=== PATIENT | female | born 2000 | race Caucasian/White ===

== ENCOUNTER 2019-03-04 06:57 | Inpatient (IN) | payer OTHER ==
[2019-03-04] MEDS ORDERED: Buffered Lidocaine 1% SYRIN* 1 ML/SYRINGE INTRADERM ONE (07:29)
[2019-03-04] MEDS ORDERED: Lactated Ringers 1000 ML Bag* 1,000 ML IV ONE ×2 (07:29→08:22)
[2019-03-04 07:52] LABS: Hematocrit 34 % (35-47); Hemoglobin 11.6 g/dL (12.0-16.0); Mean Corpuscular HGB Conc 34 g/dL (31-36); Mean Corpuscular Hemoglobin 27 pg (27-31); Mean Corpuscular Volume 81 fL (80-97); Mean Platelet Volume 7.9 fL (7.4-10.4); Platelet Count 259 10^3/uL (150-450); Red Blood Count 4.24 10^6 /uL (3.70-4.87); Red Cell Distribution Width 20 % (10-15); White Blood Count 10.8 10^3/uL (3.5-10.8)
[2019-03-04] MEDS ORDERED: OBEPIDURAL* 250 ML EPIDURAL ONE (07:55)
[2019-03-04] MEDS ORDERED: Bupivacaine 0.25% SDV PF* 10 ML VIAL INJ ONE (07:57)
[2019-03-04] MEDS ORDERED: Lactated Ringers 1000 ML Bag* 1,000 ML IV SCH ×3 (08:00→16:00)
[2019-03-04] MEDS ORDERED: Famotidine TAB* 20 MG PO PRN (08:22)
[2019-03-04] MEDS ORDERED: Phenylephrine 40 MCG/ML SYRINGE IV PUSH PRN ×2 (08:22)
[2019-03-04] MEDS ORDERED: Sodium Citrate/Citric Acid* 15 ML UDC PO PRN (08:22)
[2019-03-04] MEDS ORDERED: OBEPIDURAL* 250 ML EPIDURAL SCH (09:00)
--- NOTE | 2019-03-04 09:08 | HP ---
General Information - Reason for Visit Pt arrived on unit in active labor - General Information Maternal Age: 18 Grav: 1 Para: 0 SAB: 0 IEA: 0 Estimated Due Date: 03/09/19 Determined By: LMP Maternal Blood Type and Rh: A Positive - Results this Serology/RPR Result: Non-Reactive Rubella Result: Immune HBsAg Result: Negative HIV Result: Negative GBS Culture Result: Negative Past Medical History Delivery History: See Records - primigravida Pertinent Past Medical History: See Records - depression/ anxiety Pertinent Past Surgical History: None Pertinent Family History: Non-Contributory - Antepartal Records Antepartal Records: Reviewed, Complicated by: - teen , depression/ anxiety, anemia Review of Systems Constitutional: Uncomfortable CV Complaint: No Respiratory: Shortness of Breath: No Gastrointestinal: No Nausea/Vomiting, Normal Bowel Movement Genitourinary: No Dysuria, No Bleeding, No Leaking Fluid Musculoskeletal: No Epigastric Pain, Back Pain, Contractions Neurological: No Headache, No Visual Changes Movement: Normal Exam Allergies/Adverse Reactions: Allergies No Known Allergies Allergy (Verified 03/04/19 07:51) T-97.7, P-96, R-16, BP-109/68, O2-100% Lab Values - Entire Visit: Laboratory Tests 03/04/19 03/04/19 07:36 07:36 WBC 10.8 RBC 4.24 Hgb 11.6 L Hct 34 L MCV 81 MCH 27 MCHC 34 RDW 20 H Plt Count 259 MPV 7.9 Blood Type A Positive Antibody Screen Negative - Measurements Height: 5 ft 2.5 in Weight: 77.111 kg Weight in lbs: 170.753091 Body Mass Index (BMI): 30.6 Pre- Weight: 65.771 kg - Exam Breast: Breast Exam Deferred CVA: No CVA Tenderness Extremities: Edema - trace pedal Heart: Normal Rhythm/Heart Sounds HEENT: No Significant Findings Lungs: Clear Bilaterally Rectal: Rectal Exam Deferred Reflexes: DTR 2+ Thyroid: No Thyromegaly - Abdominal Exam Abdomen Exam: Non-Tender - Ultrasound/Biophysical Profile Ultrasound Status: Not Done Targeted Exam Findings See L&D Outpatient Visit Provider Note for Findings: N/A Estimated Weight: 7# Cervical Exam: 5cm Effacement: 100% Station: +1 Presenting Part: Vertex Membrane Status: Bulging Bleeding/Discharge: None EFM Findings - External Monitor Findings Baseline Heart Rate: 115 External Monitor Findings: Accelerations Present, No Pattern of Variable or Late Decelerations, Variability Moderate, Baseline Stable Contractions: Regular, Strong, 45-90 Seconds Contraction Frequency: 2-3 Assessment/Plan - Assessment 18 year old at 39 2/7 weeks gestation in active labor, no evidence of acidemia, membranes intact. - Plan Plan: Admit - Anticipate Vaginal Delivery - Date/Time of Admission Date of Admission: 03/04/19 Time of Admission: 07:52
[2019-03-04 09:21] LABS: Urine Benzodiazepine Screen None Detected (None Detect); Urine Opiates Screen None Detected (None Detect)
--- NOTE | 2019-03-04 12:13 | PN ---
Progress Note - Progress Note Date of Service: 03/04/19 Note: S: Resting comfortably with epidural O: B/P: 116/72, P: 92, R: 16, T: 97.7 FHR: baseline 125, moderate variability, +accelerations, no decelerations UCs: q 3-4 min, moderate to palpation VE: 10/100/-1, AROM to clear fluid A: IUP at 39 2/7 weeks Category I FHR, no evidence of metabolic acidemia GBS negative P: Await urge to push, repositioned to encourage descent Anticipate SVB
[2019-03-04] MEDS ORDERED: Oxytocin in LR* 20 UNITS/1,000 ML BAG IVPB ONE (15:19)
[2019-03-04] MEDS ORDERED: Witch Hazel PAD* JAR TOPICAL PRN (15:38)
[2019-03-04] MEDS ORDERED: Acetaminophen TAB* 325 MG PO PRN (15:38)
[2019-03-04] MEDS ORDERED: Glycerin ADULT SUPP PR PRN (15:38)
[2019-03-04] MEDS ORDERED: Dibucaine 1% 28.35 GM TUBE PR PRN (15:38)
--- NOTE | 2019-03-04 15:46 | PROCNOTE ---
[facility] OB: Delivery Note - Delivery A Date of : 03/04/19 Time of : 15:13 [place] Sex: Female Score 1 Minute: 9 Score 5 Minutes: 9 Gestational Age in Weeks and Days at Delivery: 39 Weeks and 2 Days Delivery Method: Spontaneous Vaginal Labor: Spontaneous Did Patient attempt ?: N/A, No Previous Amniotic Fluid: Clear Anesthesia/Analgesia: CEI for Labor Anesthesia Comment: Dr. White Delivered By: Cherie Jeff - Nursery Level of Nursery: Regular/Bedside - Perineum Perineal Injury: None/Intact Perineal Repair: None - Events Delivery Events of Note: Pitocin Only After Delivery, Supplemental O2 to Mother - Additional Delivery Notes Additional Delivery Notes: admitted in active labor at 39 2/7 weeks received CEI for pain relief per request with good relief. AROM at 1200 to clear fluid, found to be complete and complete. Reported urge to bear down at 1420, began pushing with good descent. Infant slowly crowned OA to JENNIE at 1513, shoulders followed easily with next push. to maternal abdomen, HR>110, spontaneous cry, dried and stimulated. Apgars 9 and 9. Cord clamped x 2 and cut by infants father after pulsations ceased. Intact carson placenta at 1519. Initial brisk bleeding, pitocin initiated at 250 cc/hr. Fundus firm. Perineum and vagina carefully inspected, found to be intact. EBL = 450 cc. Mother and stable at time of note, feeding is formula.
[2019-03-04] MEDS ORDERED: Oxytocin in LR* 20 UNITS/1,000 ML BAG IVPB SCH (16:00)
[2019-03-04] MEDS ORDERED: Simethicone TAB* 80 MG TAB.CHEW PO SCH (17:30)
[2019-03-04] MEDS: Ibuprofen TAB* 600 MG PO SCH (18:08)
[2019-03-04] MEDS: Docusate CAP* 100 MG PO SCH (21:08)
[2019-03-05] MEDS: Ibuprofen TAB* 600 MG PO SCH ×3 (03:18→14:44)
[2019-03-05 08:19] LABS: ABS Basophils 0.1 10^3/ul (0-0.2); ABS Eosinophils 0.1 10^3/ul (0-0.6); ABS Lymphocytes 1.4 10^3/ul (1.0-4.8); ABS Neutrophils 10.1 10^3/ul (1.5-7.7); Eosinophil % 0.9 %; Hematocrit 29 % (35-47); Hemoglobin 9.8 g/dL (12.0-16.0); Lymphocyte % 11.3 %; Mean Corpuscular HGB Conc 33 g/dL (31-36); Mean Corpuscular Hemoglobin 27 pg (27-31); Mean Corpuscular Volume 81 fL (80-97); Mean Platelet Volume 7.8 fL (7.4-10.4); Platelet Count 221 10^3/uL (150-450); Red Blood Count 3.61 10^6 /uL (3.70-4.87); Red Cell Distribution Width 20 % (10-15); White Blood Count 12.7 10^3/uL (3.5-10.8)
[2019-03-05] MEDS: Docusate CAP* 100 MG PO SCH ×2 (08:29→14:43)
[2019-03-05] MEDS ORDERED: Ferrous Gluconate TAB* 324 MG TAB PO SCH (09:00)
[2019-03-05 12:03] VITALS: BP 116/77
== END 2019-03-05 15:40 | disposition home or self-care (01) | DRG 560 ==
LOC: MCHOBOUT 06:57 → MCHOB 07:52
PROVIDERS: ADMIT Midwife; ATTEND Midwife
PROC: 10E0XZZ Delivery of Products of Conception, External Approach (ICD-10-PCS; principal; 2019-03-04)
PROC: 10907ZC Drainage of Amniotic Fluid, Therapeutic from Products of Conception, Via Natural or Artificial Opening (ICD-10-PCS; 2019-03-04)
DX: O99.344 Other mental disorders complicating childbirth (principal); Z37.0 Single live birth; F41.8 Other specified anxiety disorders; O90.81 Anemia of the puerperium; D64.9 Anemia, unspecified; Z3A.39 39 weeks gestation of pregnancy
CPT/HCPCS: 36415; 80307; 85025; 85027; 86850; 86900; 86901; A9270-GY; J3490